=== PATIENT | female | born 1950 | race Caucasian/White ===

== ENCOUNTER 2024-02-25 11:05 | Outpatient (CLI) | payer MEDICARE, OTHER ==
[2024-02-25 11:45] LABS: BASOPHILS % (AUTO) 0.4 % (0-1); EOSINOPHILS # (AUTO) 0.1 X10'3 (0-0.9); EOSINOPHILS % (AUTO) 0.7 % (0-6); HEMATOCRIT 41.1 % (35.0-45.0); HEMOGLOBIN 13.4 g/dl (12.0-16.0); LYMPHOCYTES # (AUTO) 1.1 X10'3 (1.1-4.8); MEAN CORPUSCULAR HEMOGLOBIN 28.8 PG (27.0-31.0); MEAN CORPUSCULAR HGB CONC 32.6 g/dL (33.0-36.5); MEAN CORPUSCULAR VOLUME 88.2 FL (78-98); MEAN PLATELET VOLUME 7.5 FL (7.4-10.4); MONOCYTES # (AUTO) 0.7 X10'3 (0-0.9); MONOCYTES % (AUTO) 6.9 % (2-12); NEUTROPHILS # (AUTO) 7.8 X10'3 (1.8-7.7); PLATELET COUNT 223 X10'3 (140-440); RED BLOOD COUNT 4.66 X10'6 (4.20-5.60); RED CELL DISTRIBUTION WIDTH 14.6 % (11.5-14.5); WHITE BLOOD COUNT 9.6 X10'3 (4.5-11.0)
[2024-02-25 12:01] LABS: APTT 28 SECONDS (22-32); PROTHROMBIN TIME 10.8 SECONDS (9.0-12.0)
[2024-02-25 12:04] LABS: ANION GAP 7 (8-16); BLOOD UREA NITROGEN 15 MG/DL (7-18); BUN/CREATININE RATIO 23.4 (10.0-20.0); CALCIUM 9.3 MG/DL (8.5-10.1); CHLORIDE 104 MMOL/L (99-107); CHOL/HDL RATIO 1.5 (0.00-4.99); CHOLESTEROL 127 MG/DL (0-200); CREATININE 0.64 MG/DL (0.40-0.90); GLUCOSE 88 MG/DL (70-104); HDL CHOLESTEROL 84 MG/DL (35-60); LDL CHOLESTEROL 36 MG/DL (50-100); SODIUM 139 MMOL/L (135-145); TOTAL CARBON DIOXIDE 28.5 MMOL/L (24-32); TRIGLYCERIDES 32 MG/DL (20-135); eGFR 90 ML/MIN
== END 2024-02-25 23:59 | disposition home or self-care (01) ==
LOC: LAB 11:05
PROVIDERS: ATTEND Internal Medicine Interventional Cardiology
DX: I11.9 Hypertensive heart disease without heart failure (principal); E78.5 Hyperlipidemia, unspecified; I25.118 Atherosclerotic heart disease of native coronary artery with other forms of angina pectoris; I82.409 Acute embolism and thrombosis of unspecified deep veins of unspecified lower extremity
CPT/HCPCS: 36415; 80048; 80061; 85025; 85610; 85730

== ENCOUNTER 2024-02-29 10:36 | Day surgery (SDC) | payer MEDICARE, OTHER ==
[2024-02-29] VITALS (8 sets, daily range): BP systolic 139–161; BP diastolic 66–94; PULSE 61–71; RESP 16; TEMP 97.4; O2SAT 92–98
[~2024-02-29] VITALS: Ht 162.6 cm; Wt 46.5 kg
[2024-02-29] MEDS ORDERED: MULT-1133 PO (11:08)
[2024-02-29] MEDS ORDERED: VITA1CAP PO (11:08)
[2024-02-29] MEDS ORDERED: LOSA25TA41 PO (11:08)
[2024-02-29] MEDS ORDERED: CALC250T2 PO (11:08)
[2024-02-29] MEDS ORDERED: VITA-321 PO (11:08)
[2024-02-29] MEDS ORDERED: METO-395 PO (11:08)
[2024-02-29] MEDS ORDERED: FLUT1BLS10 INH (11:08)
[2024-02-29] MEDS ORDERED: ROSU20TA73 PO (11:08)
[2024-02-29] MEDS: LORazepam 0.5 MG tablet PO PRN (11:33)
[2024-02-29] MEDS: diphenhydrAMINE 25mg capsule PO PRN (11:33)
[2024-02-29] MEDS: normal saline 1,000 ML IV SCH (11:34)
[2024-02-29] MEDS ORDERED: heparin 1,000unit/ml 10ml vial 10 ML ONE (12:04)
[2024-02-29] MEDS ORDERED: midazolam 1 mg/ML 2ml injection ONE (12:04)
[2024-02-29] MEDS ORDERED: LIDOcaine 1% (10mg/ml) 2ml vial ONE (12:04)
[2024-02-29] MEDS ORDERED: iohexol 350MG/ML 100ml bottle IV ONE (12:04)
[2024-02-29] MEDS ORDERED: fentaNYL/PF 50MCG/1 ML 2ML syringe ONE (12:04)
[2024-02-29] MEDS ORDERED: verapamil 2.5 mg/ml inj IV ONE (12:05)
[2024-02-29] MEDS ORDERED: nitroGLYCERIN 500mcg/5mL D5W 5 ML IV ONE (12:06)
[2024-02-29] MEDS ORDERED: LIDOcaine 1% 30ml preserv. free vial ONE (13:22)
[2024-02-29] MEDS ORDERED: iohexol 350 MG/ML 50ML vial IV ONE (13:38)
[2024-02-29] MEDS ORDERED: HYDROcodone/acetaminophen 5mg/325mg tablet PO PRN (14:20)
[2024-02-29] MEDS ORDERED: HYDROcodone/acetaminophen 10/325mg tab PO PRN (14:20)
== END 2024-02-29 16:05 | disposition home or self-care (01) ==
LOC: SSTAY O 10:36
PROVIDERS: ATTEND Student in an Organized Health Care Education/Training Program
DX: I25.118 Atherosclerotic heart disease of native coronary artery with other forms of angina pectoris (principal); I10 Essential (primary) hypertension; E78.00 Pure hypercholesterolemia, unspecified; Z79.899 Other long term (current) drug therapy; Z88.0 Allergy status to penicillin
CPT/HCPCS: 93005; 93458; 93567; 99152; 99153; J1644; J2250; J3010; J3490; J7030; Q0163; Q9967; A6258; C1760; C1894